=== PATIENT | male | born 1955 | race Caucasian/White ===

== ENCOUNTER 2017-05-10 06:19 | Day surgery (SDC) | payer OTHER ==
[~2017-05-10] VITALS: Ht 167.6 cm; Wt 99.8 kg
--- NOTE | ~2017-05-10 | HP ---
PATIENT: VARGHESE ORTIZ MEDICAL RECORD: [id number] ACCOUNT: [id number] LOCATION:[facility] : 55 ADMISSION DATE: 05/10/17 HISTORY AND PHYSICAL EXAMINATION CHIEF COMPLAINT: Anemia. HISTORY OF PRESENT ILLNESS: The patient has iron deficiency anemia. The patient underwent a colonoscopy, which revealed nonbleeding diverticula. EGD revealed multiple gastric polyps, some quite large and multiple polyps were bleeding. The patient was referred for argon plasma coagulation therapy to the bleeding gastric polyps. The risks, possible complications and alternatives to procedure were explained to the patient. He elects to proceed. Discussion specifically included, but was not limited to, bleeding requiring emergency reoperation, infection, endoscopic perforation and the possible need for an additional diagnostic or therapeutic procedure. MEDICINES AT THE [facility]: Acetaminophen, amlodipine, analgesic balm, carvedilol, Atrovent inhaler, cetirizine, eczema lotion, gabapentin, Humulin, meloxicam, omeprazole, Proctozone, simvastatin and tamsulosin. PAST MEDICAL AND SURGICAL HISTORY: BPH, neuropathy, insulin-dependent diabetes mellitus, hypertension, eczema, hypercholesterolemia, and gastroesophageal reflux. PHYSICAL EXAMINATION: GENERAL: The patient does not appear acutely ill. He does appear chronically ill. VITAL SIGNS: Reviewed. HEAD: External ears appear normal. EYES: Extraocular movements are intact. NECK: Trachea is midline. CHEST: No intercostal retractions. PULMONARY: Nonlabored, no stridor. ABDOMEN: No peritonitis with movement. IMPRESSION: Iron deficiency anemia due to bleeding gastric polyps. PLAN: EGD with argon plasma coagulation therapy to bleeding gastric polyps. TRANSINT:[id number] Voice Confirmation ID: [id number] DOCUMENT ID: [id number] GERALDINE BUTLER MD CC: GERALDINE STANLEY MD, LUCINA MONZON MD and LUZ MARIA WOODS [id number] DICTATION DATE: 05/10/17 0947 MANAGER PROCESS EXCELLENCE: 05/10/17 1059 [facility] [address] [id number]
[2017-05-10] MEDS ORDERED: NORVASC10 MG PO (07:45)
[2017-05-10] MEDS ORDERED: BAYER CHEWABLE81 MG PO (07:46)
[2017-05-10] MEDS ORDERED: COREG 3.1253.125 MG PO (07:46)
[2017-05-10] MEDS ORDERED: ULTRAM50 MG PO (07:47)
[2017-05-10] MEDS ORDERED: NEURONTIN600 MG PO (07:47)
[2017-05-10] MEDS ORDERED: MOBIC7.5 MG PO (07:48)
[2017-05-10] MEDS ORDERED: ZYRTEC10 MG PO (07:48)
[2017-05-10] MEDS ORDERED: ZESTRIL40 MG PO (07:49)
[2017-05-10] MEDS ORDERED: GLUCOPHAGE1000 MG PO (07:49)
[2017-05-10] MEDS ORDERED: ATROVENT HFA12.9 GM INH (07:50)
[2017-05-10] MEDS ORDERED: HYDROCHLOROTHIA25 MG PO (07:51)
[2017-05-10] MEDS ORDERED: OMEPRAZOLE20 M1 PO (07:51)
[2017-05-10] MEDS ORDERED: ZOCOR40 MG PO (07:51)
[2017-05-10] MEDS ORDERED: HUMULIN 70100 UNIT/1 SC (07:52)
[2017-05-10] MEDS ORDERED: FLOMAX0.4 MG PO (07:52)
[2017-05-10] MEDS ORDERED: NOVOLIN 70/30 110 ML SC (07:54)
[2017-05-10 07:55] VITALS: BP 135/78; Ht 167.6 cm; Wt 99.8 kg
[2017-05-10 08:45] LABS: BASOPHILS 0.4 % (0-2); EOSINOPHILS 7.5 % (0-7); HEMATOCRIT 36.2 % (42.0-54.0); HEMOGLOBIN 11.1 g/dL (13.5-17.5); IMMATURE GRANULOCYTES 0.9 % (0-5); LYMPHOCYTES 25.5 % (15-50); MCH 21.9 pg (26.0-34.0); MCHC 30.7 g/dL (31.0-37.0); MCV 71.5 fL (80.0-100.0); MEAN PLATELET VOLUME 8.9 fL (7.4-10.4); NEUTROPHILS 57.7 % (40-80); PLATELET COUNT 186 10x3/uL (130-400); RBC 5.06 10x6/uL (4.20-6.10)
[2017-05-10 08:57] LABS: CALC OSMOLALITY 279 mosm/kg (275-300); CALCIUM 8.6 mg/dL (8.5-10.1); CARBON DIOXIDE 28.3 mmol/L (21.0-32.0); CHLORIDE - SERUM 103 mmol/L (98-107); CREATININE - SERUM 0.7 mg/dL (0.6-1.3); GLUCOSE 133 mg/dL (74-106); POTASSIUM - SERUM 4.1 mmol/L (3.5-5.1); SODIUM 139 mmol/L (136-145); UREA NITROGEN 12 mg/dL (7-18); eGFR NON AFRICAN AMERICAN > 90 mL/min (90-120)
--- NOTE | 2017-05-10 11:40 | NUR ---
PATIENT WAS HAVING SOB, ANESTHESIA WAS CONSULTED. DUONEB UPDRAFT WAS ORDERED PER DR. RALPH. DR. RALPH CONSULTED AFTER UPDRAFT GIVEN REGARDING DECREASED O2 SAT AT 93% ON 6L. GIVEN VERBAL ORDERS FROM DR RALPH TO GIVE DECRADON 10MG IV. GIVEN AT 1141.
--- NOTE | 2017-05-10 11:54 | NUR ---
FSBS UPON ARRIVAL TO PACU WAS 88MG/DL
--- NOTE | 2017-05-10 12:09 | NUR ---
1200 BACK FROM EGD WITH ARGON. SAY 94% ON 4L N/C HAS HX OF COPD ASTHMA. ENCOURAGED TO TAKE DEEP BREATHS AND COUGH.
--- NOTE | 2017-05-10 12:12 | NUR ---
1212 REPORT TO BRIGID SALGADO R.N.
--- NOTE | 2017-05-10 20:02 | NUR ---
1430--IV DC'D, PT UP TO DRESS AT THIS TIME. MICHELLE WILLETT 1450--DISCHARGE INSTRUCTIONS GIVEN, PT VERBALIZES UNDERSTANDING. PT OFF UNIT VIA WC. MICHELLE WILLETT
== END 2017-05-10 14:50 | disposition home or self-care (01) ==
LOC: D.OPS 06:19
PROVIDERS: Anesthesiology
DX: K31.7 Polyp of stomach and duodenum (principal); D50.9 Iron deficiency anemia, unspecified; N40.0 Benign prostatic hyperplasia without lower urinary tract symptoms; E11.40 Type 2 diabetes mellitus with diabetic neuropathy, unspecified; I10 Essential (primary) hypertension; L30.9 Dermatitis, unspecified; E78.00 Pure hypercholesterolemia, unspecified; K21.9 Gastro-esophageal reflux disease without esophagitis; Z79.4 Long term (current) use of insulin; Z79.1 Long term (current) use of non-steroidal anti-inflammatories (NSAID); Z01.812 Encounter for preprocedural laboratory examination

== ENCOUNTER 2020-05-10 09:02 | Day surgery (SDC) | payer OTHER ==
[~2020-05-10] VITALS: Ht 167.6 cm; Wt 104.5 kg
[~2020-05-10 09:02] MED LIST: ATROVENT HFA12.9 GM INH; BAYER CHEWABLE81 MG PO; COREG 3.1253.125 MG PO; FLOMAX0.4 MG PO; GLUCOPHAGE1000 MG PO; HUMULIN 70100 UNIT/1 SC; HYDROCHLOROTHIA25 MG PO; MOBIC7.5 MG PO; NEURONTIN600 MG PO; NORVASC10 MG PO; NOVOLIN 70/30 110 ML SC; OMEPRAZOLE20 M1 PO; ULTRAM50 MG PO; ZESTRIL40 MG PO; ZOCOR40 MG PO; ZYRTEC10 MG PO
[2020-05-10 10:03] VITALS: Ht 167.6 cm; Wt 104.5 kg
[2020-05-10 10:06] LABS: HEMATOCRIT 37.6 % (42.0-54.0); HEMOGLOBIN 11.7 g/dL (13.5-17.5); MCH 22.2 pg (26.0-34.0); MCHC 31.1 g/dL (31.0-37.0); MCV 71.3 fL (80.0-100.0); MEAN PLATELET VOLUME 8.6 fL (7.4-10.4); RBC 5.27 10x6/uL (4.20-6.10); RDW 17.3 % (11.5-14.5); WBC 9.3 10x3/uL (4.8-10.8)
[2020-05-10 10:17] LABS: CALC OSMOLALITY 270 mosm/kg (275-300); CALCIUM 8.5 mg/dL (8.5-10.1); CARBON DIOXIDE 31.4 mmol/L (21.0-32.0); CHLORIDE - SERUM 100 mmol/L (98-107); CREATININE - SERUM 0.9 mg/dL (0.6-1.3); GLUCOSE 89 mg/dL (74-106); POTASSIUM - SERUM 3.8 mmol/L (3.5-5.1); SODIUM 136 mmol/L (136-145); UREA NITROGEN 13 mg/dL (7-18); eGFR NON AFRICAN AMERICAN 90 mL/min (90-120)
--- NOTE | 2020-05-10 15:36 | NUR ---
1532 XRAY NOTIFIED OF ROOM NUMBER
--- NOTE | 2020-05-10 15:42 | NUR ---
1535 PORT CXR DONE.
--- NOTE | 2020-05-10 17:11 | NUR ---
1655 BACK TO INTERMEDIATE WITH GUARDS.
--- NOTE | 2020-05-30 11:51 | HP ---
PATIENT: VARGHESE ORTIZ MEDICAL RECORD: [id number] ACCOUNT: [id number] LOCATION:[facility] : 55 ADMISSION DATE: 05/10/20 PCP: GERALDINE BUTLER MD HISTORY AND PHYSICAL EXAMINATION PREOPERATIVE DIAGNOSIS: Rectal bleeding. HISTORY OF PHYSICAL ILLNESS: The patient has been having rectal bleeding. He is here for an upper endoscopy. He did undergo a bowel prep. The indications for the lower endoscopy would be history of diverticula, hematochezia, mucousy stools (change in his stools), also a digital rectal examination that was guaiac positive, history of gastric polyps. The patient is here to undergo EGD and colonoscopy. I think in his best interest to undergo one anesthetic as the patient has undergone a bowel prep. The patient states he has had a history of colon polyps. HOME MEDICINES: Reviewed. ALLERGIES: SULFA. SOCIAL HISTORY: Former smoker. PAST MEDICAL AND SURGICAL HISTORY: COPD, asthma, hypertension, insulin-dependent diabetes mellitus, gastroesophageal reflux disease, rheumatoid arthritis, history of hemorrhoidectomy. History of right wrist surgery. PHYSICAL EXAMINATION: GENERAL: The patient does not appear acutely ill. He does appear chronically ill. VITAL SIGNS: Reviewed. EARS: External ears appear normal. EYES: Extraocular movements are intact. NECK: Trachea is midline. CHEST: No intercostal retractions. PULMONARY: Nonlabored, no stridor. IMPRESSION: 1. History of colon polyps. 2. Hematochezia. 3. Heme-positive stools. 4. History of gastric polyps. PLAN: EGD and colonoscopy. TRANSINT:[id number] Voice Confirmation ID: [id number] DOCUMENT ID: [id number] HISTORY AND PHYSICAL [id number] VARGHESE ORTIZ ROBERT MD at 1151 CC: OLIVER KC DR. [id number] DICTATION DATE: 05/10/20 1336 PATIENT SERVICE REP: 05/10/20 1430 [facility] 05/10/20 [place] [address]
--- NOTE | 2020-05-30 13:49 | OP ---
PATIENT NAME: VARGHESE ORTIZ MEDICAL RECORD: [id number] :55 LOCATION:[facility] ADMISSION DATE: SURGEON: VITOR BUTLER MD DATE OF OPERATION: 05/10/2020 PREOPERATIVE DIAGNOSES: 1. History of gastric polyps. 2. Anemia. 3. Heme-positive stools. 4. Hematochezia. 5. History of Tiwari's esophagus. PROCEDURES: 1. Esophagogastroduodenoscopy with antral and distal esophageal biopsies. 2. Snare gastric polypectomy times 1. 3. Endoscopic ablation of gastric polyps times 19 with argon plasma ethylbenzene cracking supervisor. 4. Total colonoscopy to cecum. 5. Hot biopsy forceps polypectomies times 6. 6. Snare anal polypectomy. POSTOPERATIVE DIAGNOSES: 1. Rule out Tiwari's. 2. Twenty gastric polyps, only 1 was large enough to be for pathologic examination. 3. Anal polyp, which could be prolapsed out through the anus. 4. Large bowel polyps times 6. 5. History of Tiwari's esophagus. SURGEON: Vitor Butler MD BUILDING SERVICES ENGINEER: None. BLOOD LOSS: 25 cc. ANESTHESIA: General. COMPLICATIONS: None. The risks, possible complications, and alternatives to the procedure were explained to the patient. He elects to proceed. The discussion specifically included, but was not limited to, bleeding requiring emergency reoperation, infection, bowel injury. OPERATIVE COURSE: The patient was conveyed to the operating room electively on 05/10/2020. IV sedation was induced by the anesthesia staff. A bite block was inserted. A gastroscope was inserted into the mouth. It was advanced easily into the hypopharynx. The esophagus was easily intubated as were the stomach and duodenum. Cold endoscopic biopsies were obtained to rule out H. pylori. There were a number of gastric polyps. I chose a large one of these for pathologic examination. I advanced a snare around the base of the polyp, which was a semi-pedunculated polyp. Utilizing the coagulation setting and then the cut setting, I removed the polyp. It was placed within a bag retrieval device and was withdrawn through the mouth. I then readvanced the gastroscope. Biopsies were obtained at the EG junction to rule out Tiwari's. The patient does have a history of Tiwari's. I advanced it into the stomach. There were a OPERATIVE REPORT [id number] VARGHESE ORTIZ number of gastric polyps and these were all ablated utilizing the argon plasma ethylbenzene cracking supervisor with the esophageal setting in the forced mode. I then withdrew the endoscope completely. The patient was then turned 180 degrees and placed in the Alcazar position. A digital rectal examination was performed. A colonoscope was inserted through the anus. It was easily advanced to the cecum. The prep was adequate. I slowly withdrew the endoscope. I irrigated and aspirated extensively. I dragged the folds. There were a total of 6 large bowel polyps which were removed utilizing the hot biopsy forceps polypectomy technique. Upon retroflexion in the rectum, an anal polyp was noted. I advanced the snare. I was able to snare off a portion of the polyp utilizing the coagulation setting and then the cut setting. I removed this portion of the polyp digitally. I was then able to prolapse the rest of the polyp and this was removed utilizing the endoscopic snare even though the polyp had been prolapsed externally. There was some bleeding from the polyp. An anoscope was placed and it appeared that the bleeding was going to stop. The patient was then conveyed to the post-endoscopy area. It is very likely that the patient will require a transanal excision of this anal polyp. I will wait on the pathology first. TRANSINT:[id number] Voice Confirmation ID: [id number] DOCUMENT ID: [id number] VITOR BUTLER MD at 1349 CC: [id number] DICTATION DATE: 05/30/20 1148 INLAYER SILVER: 05/30/20 1317 [facility] 05/10/[address] [address]
== END 2020-05-10 16:55 | disposition home or self-care (01) ==
LOC: D.OPS 09:02
PROVIDERS: ATTEND Surgery
DX: K62.5 Hemorrhage of anus and rectum (principal); J44.9 Chronic obstructive pulmonary disease, unspecified; I10 Essential (primary) hypertension; E11.9 Type 2 diabetes mellitus without complications; K21.9 Gastro-esophageal reflux disease without esophagitis; Z86.010 Personal history of colon polyps; Z79.84 Long term (current) use of oral hypoglycemic drugs; D64.9 Anemia, unspecified; K31.7 Polyp of stomach and duodenum; K63.5 Polyp of colon

== ENCOUNTER 2020-10-31 05:27 | Day surgery (SDC) | payer OTHER ==
[~2020-10-31] VITALS: Ht 167.6 cm; Wt 97.3 kg
[2020-10-31] MEDS ORDERED: ZOLOFT100 MG PO (06:11)
[2020-10-31] MEDS ORDERED: MINIPRESS2 MG PO (06:12)
[2020-10-31] MEDS ORDERED: GYNE-LOTRIMIN-745 GM (06:14)
[2020-10-31] MEDS ORDERED: PAMELOR10 MG PO (06:15)
[2020-10-31] MEDS ORDERED: DIPROLENE 0.05%60 M1 TOPICAL (06:15)
[2020-10-31 06:17] LABS: BASOPHILS 0.1 % (0-2); EOSINOPHILS 4.1 % (0-7); HEMATOCRIT 41.3 % (42.0-54.0); HEMOGLOBIN 13.3 g/dL (13.5-17.5); IMMATURE GRANULOCYTES 1.4 % (0-5); LYMPHOCYTE ABS# 1.85 10x3/uL (1.32-3.57); LYMPHOCYTES 21.8 % (15-50); MCH 25.4 pg (26.0-34.0); MCHC 32.2 g/dL (31.0-37.0); MEAN PLATELET VOLUME 8.9 fL (7.4-10.4); MONOCYTES 7.9 % (2-11); NEUTROPHILS 64.7 % (40-80); PLATELET COUNT 198 10x3/uL (130-400); RBC 5.23 10x6/uL (4.20-6.10); RDW 15.6 % (11.5-14.5); WBC 8.5 10x3/uL (4.8-10.8)
[2020-10-31] MEDS ORDERED: HEALTHYLAX17 GM (06:17)
[2020-10-31] MEDS ORDERED: FLUTICASONE PRO16 GM (06:18)
[2020-10-31 06:20] LABS: CALC OSMOLALITY 283 mosm/kg (275-300); CARBON DIOXIDE 27.7 mmol/L (21.0-32.0); CHLORIDE - SERUM 102 mmol/L (98-107); POTASSIUM - SERUM 3.9 mmol/L (3.5-5.1); SODIUM 138 mmol/L (136-145); UREA NITROGEN 20 mg/dL (7-18); eGFR NON AFRICAN AMERICAN 80 mL/min (90-120)
[2020-10-31] MEDS ORDERED: ACETAMINOPHEN325 MG PO (06:20)
[2020-10-31 06:21] VITALS: BP 148/88; Ht 167.6 cm; Wt 97.3 kg
[2020-10-31 06:21] LABS: GLUCOSE 180 mg/dL (74-106)
[2020-10-31] MEDS ORDERED: ATROVENT HFA12.9 GM INH (06:22)
[2020-10-31] MEDS ORDERED: NEURONTIN 400400 MG PO (06:23)
[2020-10-31] MEDS ORDERED: HYDROCHLOROTHIA25 MG PO (06:24)
[2020-10-31] MEDS ORDERED: LISINOPRIL30 MG (06:25)
[2020-10-31] MEDS ORDERED: XOPENEX HFA15 GM INH (06:27)
--- NOTE | 2020-11-28 16:10 | OP ---
PATIENT NAME: VARGHESE ORTIZ MEDICAL RECORD: [id number] :55 LOCATION:[facility] ADMISSION DATE: SURGEON: GERALDINE BUTLER MD DATE OF OPERATION: 10/31/2020 PRINCIPAL DIAGNOSIS: Anorectal mass. POSTOPERATIVE DIAGNOSIS: Anorectal mass. PROCEDURE: Single column hemorrhoidectomy. SURGEON: Dr. Butler MOBILE CRANE OPERATOR: None. BLOOD LOSS: Minimal. ANESTHESIA: COMPLICATIONS: None. The patient was referred with an anorectal mass. The mass was removed essentially by utilizing a single column hemorrhoidectomy. This removed the entire mass. OPERATIVE COURSE: The patient was conveyed to the operating room electively on 10/31/2020. General anesthesia was induced by the anesthesia staff. The patient was placed in the lithotomy position. The buttocks were taped laterally. The anus and perineum were sterilely prepped and draped. U-shaped anal retractors were placed. The mass was at 5 o'clock. A vzzclm-et-twzal suture of 3-0 Vicryl was applied at the apex of the internal hemorrhoid. Through the use of double curvilinear incisions, I excised the internal and external hemorrhoid. I utilized the Harmonic scalpel to perform this excision. I swept down the internal and external anal sphincters. They were undamaged during the procedure. The mass was excised. Additional hemorrhoidal tissue was removed bluntly in a piecemeal fashion. Submucosal and subdermal flaps were created sharply. The same 3-0 Vicryl suture was used in a running locking fashion for the anal mucosa and then in a running fashion out onto the anoderm. It was then tied. Gelfoam was applied within the anus and lower rectum. A combination of Marcaine and steroid preparation were used to infiltrate the perianal tissues. A topical anesthetic cream was applied to the external hemorrhoids. The patient was then extubated and conveyed to post-anesthesia care unit. He is going to be dismissed home on an analgesic, Valium as well as a stool softener. I will see him in the office in 2-3 weeks. TRANSINT:[id number] Voice Confirmation ID: [id number] DOCUMENT ID: [id number] OPERATIVE REPORT [id number] VARGHESE ORTIZ ROBERT MD at 1610 CC: [id number] DICTATION DATE: 11/27/20 1414 LAY OUT MACHINE OPERATOR: 11/27/20 2224 [facility] 10/31/[address] [id number] [place] [id number]
== END 2020-10-31 13:15 | disposition home or self-care (01) ==
LOC: D.OPS 05:27
PROVIDERS: Anesthesiology; ATTEND Surgery
DX: K62.89 Other specified diseases of anus and rectum (principal); K64.4 Residual hemorrhoidal skin tags; K64.8 Other hemorrhoids